=== PATIENT | male | born 1940 | race Caucasian/White ===

== ENCOUNTER 2017-06-28 15:32 | Emergency (ER) | payer OTHER, MEDICARE ==
[~2017-06-28] VITALS: Ht 177.8 cm; Wt 89.1 kg
[~2017-06-28 15:32] MED LIST: AMLO5TAB22 PO; CENTTAB9 PO; CHOL50006 PO; DIOV160T3 PO; JANU50TA9 PO; METO50TA PO; MEVA40TA PO; MILK500C PO; OMEP20TA39 PO; POTA20IN3 PO; PROBCAP4 PO; ST JTAB PO; TICA90 PO; VITA100017 PO
[2017-06-28 15:34] VITALS: BP 188/84; PULSE 51; RESP 18; TEMP 97.6; O2SAT 99
--- NOTE | 2017-06-28 15:57 | RADRPT ---
EXAM DATE/TIME: 06/28/2017 15:51 [place] COMPARISON: No previous studies available for comparison. INDICATIONS : Chest pain. MEDICAL HISTORY : Hypertension. Diabetes mellitus type I. SURGICAL HISTORY : CABG. Coronary artery stent. ENCOUNTER: Initial ACUITY: 1 day PAIN SCORE: 10 LOCATION: middle chest. FINDINGS: PA and lateral views of the chest demonstrate the lungs to be symmetrically aerated without evidence of mass, infiltrate or effusion. The cardiomediastinal contours are unremarkable. Status post CABG. Osseous structures are intact. CONCLUSION: No acute disease. Jose Raul Abreu MD on June 28, 2017 at 15:54 Board Certified Radiologist. This report was verified electronically.
[2017-06-28 16:40] LABS: AUTOMATED NEUTROPHIL # 3.2 TH/MM3 (1.8-7.7); BASOPHIL # 0.1 TH/MM3 (0-0.2); BASOPHIL % 0.8 % (0.0-2.0); EOSINOPHIL # 0.3 TH/MM3 (0-0.4); EOSINOPHIL % 4.5 % (0.0-4.0); HEMATOCRIT 38.4 % (39.0-51.0); LYMPH % 40.9 % (9.0-44.0); LYMPHOCYTE # 2.9 TH/MM3 (1.0-4.8); MEAN CELL VOLUME 85.3 FL (80.0-100.0); MEAN CORPUSCULAR HEMOGLOBIN 28.8 PG (27.0-34.0); MEAN CORPUSCULAR HGB CONC 33.8 % (32.0-36.0); MEAN PLATELET VOLUME 9.1 FL (7.0-11.0); MONO % 9.4 % (0.0-8.0); MONOCYTE # 0.7 TH/MM3 (0-0.9); NEUT % 44.4 % (16.0-70.0); PLATELET COUNT 173 TH/MM3 (150-450); RED CELL DISTRIBUTION WIDTH 15.7 % (11.6-17.2); WHITE BLOOD COUNT 7.2 TH/MM3 (4.0-11.0)
[2017-06-28 16:51] LABS: PROTHROMBIN TIME - PATIENT 10.4 SEC (9.8-11.6)
[2017-06-28 17:02] LABS: BICARBONATE 28.7 MEQ/L (21.0-32.0); BLOOD UREA NITROGEN 20 MG/DL (7-18); CHLORIDE 107 MEQ/L (98-107); CREATININE 1.44 MG/DL (0.60-1.30); GLOMERULAR FILTRATION RATE 47 ML/MIN (>89); GLUCOSE,RANDOM 100 MG/DL (74-106); MAGNESIUM 1.6 MG/DL (1.5-2.5); SODIUM (NA) 140 MEQ/L (136-145)
[2017-06-28 17:07] LABS: TROPONIN I LESS THAN 0.02 NG/ML (0.02-0.05)
[2017-06-28 18:04] VITALS: BP 184/84; PULSE 47; RESP 20; O2SAT 100
[2017-06-28] MEDS ORDERED: CARV6.252 PO (18:12)
[2017-06-28] MEDS ORDERED: METF500T PO (18:12)
[2017-06-28] MEDS ORDERED: OMEGCAP PO (18:13)
[2017-06-28] MEDS ORDERED: CO Q10CA (18:13)
[2017-06-28] MEDS ORDERED: AMLO5TAB2 PO (18:42)
[2017-06-28] MEDS ORDERED: POTA-163 PO (18:42)
[2017-06-28] MEDS ORDERED: PRAS10TA PO (18:42)
[2017-06-28] MEDS ORDERED: ASPI81CH6 CHEW (18:42)
[2017-06-28] MEDS ORDERED: ROSU1TAB8 PO (18:42)
[2017-06-28] MEDS ORDERED: VALS160T6 PO (18:42)
--- NOTE | 2017-06-28 18:44 | PD ---
HPI Chief Complaint: Cardiac Complaint Time Seen by Provider: 17:51 Travel History International Travel<30 days: No Contact w/Intl Traveler<30days: No Traveled to known affect area: No History of Present Illness HPI Patient 77-year-old male presents emergency department for [facility] for evaluation of abnormal EKG. Patient states she's been followed by Dr. Butler in the past but due to a change in insurance [facility], he had no complaints when he showed up there today during intake he was noted be somewhat bradycardic and had an EKG performed which showed a second degree type I block and was referred to the emergency department further evaluation. The patient states he has absolutely no complaints, no chest pain or shortness of breath no preceding symptoms no weakness nausea vomiting diarrhea constipation. States symptoms are minimal, context as above, associated signs symptoms as above, unknown duration. PFSH Past Medical History Hx Anticoagulant Therapy: Yes Anxiety: No Depression: No Cancer: Yes (SKIN) Cardiac Catheterization: Yes Cardiovascular Problems: Yes (CABG, stents) High Cholesterol: Yes Chest Pain: No Diabetes: Yes Patient Takes Glucophage: Yes Endocrine: Yes Genitourinary: Yes (vasectomy ) Heparin Induced Thrombocytopen: No Hypertension: Yes Immune Disorder: No Musculoskeletal: No Neurologic: No Psychiatric: No Reproductive: No Respiratory: Yes (SOB) Integumentary: Yes (skin ca on nose, hand ) Sickle Cell Disease: No Past Surgical History Abdominal Surgery: No Cardiac Surgery: Yes Coronary Artery Bypass Graft: Yes Coronary Stent: Yes (x2) Ear Surgery: No Endocrine Surgery: No Eye Surgery: No Genitourinary Surgery: No Gynecologic Surgery: No Oral Surgery: No Thoracic Surgery: No Other Surgery: Yes Social History Alcohol Use: Yes (rare) Tobacco Use: No (FORMER) Substance Use: No Allergies-Medications (Allergen,Severity, Reaction): Coded Allergies: Iodinated Contrast- Oral and IV Dye (Verified Allergy, Severe, 06/28/17) diatrizoate meglumine (Unverified Allergy, Severe, 01/12/17) gadobenic acid (Unverified Allergy, Severe, 01/12/17) gadodiamide (Unverified Allergy, Severe, 01/12/17) gadoteridol (Unverified Allergy, Severe, 01/12/17) iodixanol (Unverified Allergy, Severe, 01/12/17) iohexol (Unverified Allergy, Severe, 01/12/17) isosorbide (Verified Allergy, Severe, 06/28/17) iodine (Unverified Allergy, Intermediate, 01/12/17) penicillin G (Unverified Allergy, Intermediate, 01/12/17) potassium iodide (Unverified Allergy, Intermediate, 01/12/17) povidone-iodine (Unverified Allergy, Intermediate, 01/12/17) sodium iodide (Unverified Allergy, Intermediate, 01/12/17) sodium iodide (Unverified Allergy, Intermediate, 01/12/17) clopidogrel (Unverified Adverse Reaction, Mild, 01/12/17) Uncoded Allergies: BISULFATE (Allergy, Severe, 06/28/17) sodium pentathol (Allergy, Intermediate, 07/26/14) Reported Meds & Prescriptions Reported Meds & Active Scripts Active Reported Valsartan-Hydrochlorothiazide 160-25 Mg Tab 1 Tab PO DAILY Potassium Chloride ER (Potassium Chloride) 20 Meq Tab 20 Meq PO DAILY Rosuvastatin (Rosuvastatin Calcium) 20 Mg Tab 20 Mg PO HS Effient (Prasugrel) 10 Mg Tab 10 Mg PO DAILY Aspirin Low Dose (Aspirin) 81 Mg Chew 81 Mg CHEW DAILY Amlodipine (Amlodipine Besylate) 5 Mg Tab 5 Mg PO HS [place]-3 Fish Oil/Vitamin (Fish Oil-Cholecalciferol) 1,000-1,000 Mg Cap 1 Cap PO DAILY Co Q 10 (Coenzyme Q10 (Ubidecarenone)) 10 Mg Cap DAILY Metformin (Metformin HCl) 500 Mg Tab Unknown Dose PO BIDPC Carvedilol 6.25 Mg Tab 6.25 Mg PO BID Probiotic Acidophilus (Acidophilus) 12.9 Mg (2 Billion Cell) Cap 1 Tab PO DAILY Vitamin C (Ascorbic Acid) 1,000 Mg Tab 1,000 Mg PO DAILY Review of Systems Except as stated in HPI: all other systems reviewed are Neg Physical Exam Narrative GENERAL: Well-developed well-nourished, quite pleasant 77-year-old male in no obvious distress SKIN: Focused skin assessment warm/dry. HEAD: Atraumatic. Normocephalic. EYES: Pupils equal and round. No scleral icterus. No injection or drainage. ENT: No nasal bleeding or discharge. Mucous membranes pink and moist. NECK: Trachea midline. No JVD. CARDIOVASCULAR: No lid bradycardic, regular rhythm,. No murmur appreciated. RESPIRATORY: No accessory muscle use. Clear to auscultation. Breath sounds equal bilaterally. GASTROINTESTINAL: Abdomen soft, non-tender, nondistended. Hepatic and splenic margins not palpable. MUSCULOSKELETAL: No obvious deformities. No clubbing. No cyanosis. No edema. NEUROLOGICAL: Awake and alert. No obvious cranial nerve deficits. Motor grossly within normal limits. Normal speech. PSYCHIATRIC: Appropriate mood and affect; insight and judgment normal. Data Data Last Documented VS Vital Signs Date Time Temp Pulse Resp B/P (MAP) Pulse Ox O2 Delivery O2 Flow Rate FiO2 06/28/17 18:58 06/28/17 18:04 47 20 100 Room Air 06/28/17 15:34 97.6 Orders Orders Electrocardiogram (06/28/17 15:40) Basic Metabolic Panel (Bmp) (06/28/17 15:40) Ckmb (Isoenzyme) Profile (06/28/17 15:40) Complete Blood Count With Diff (06/28/17 15:40) Magnesium (Mg) (06/28/17 15:40) Prothrombin Time / Inr (Pt) (06/28/17 15:40) Act Partial Throm Time (Ptt) (06/28/17 15:40) Troponin I (06/28/17 15:40) Chest, Pa & Lat (06/28/17 15:40) CKMB (06/28/17 16:04) CKMB% (06/28/17 16:04) Ed Discharge Order (06/28/17 18:44) Labs Laboratory Tests Test 06/28/17 16:04 White Blood Count 7.2 TH/MM3 Red Blood Count 4.50 MIL/MM3 Hemoglobin 13.0 GM/DL Hematocrit 38.4 % Mean Corpuscular Volume 85.3 FL Mean Corpuscular Hemoglobin 28.8 PG Mean Corpuscular Hemoglobin Concent 33.8 % Red Cell Distribution Width 15.7 % Platelet Count 173 TH/MM3 Mean Platelet Volume 9.1 FL Neutrophils (%) (Auto) 44.4 % Lymphocytes (%) (Auto) 40.9 % Monocytes (%) (Auto) 9.4 % Eosinophils (%) (Auto) 4.5 % Basophils (%) (Auto) 0.8 % Neutrophils # (Auto) 3.2 TH/MM3 Lymphocytes # (Auto) 2.9 TH/MM3 Monocytes # (Auto) 0.7 TH/MM3 Eosinophils # (Auto) 0.3 TH/MM3 Basophils # (Auto) 0.1 TH/MM3 CBC Comment DIFF FINAL Differential Comment Prothrombin Time 10.4 SEC Prothromb Time International Ratio 1.0 RATIO Activated Partial Thromboplast Time 25.1 SEC Blood Urea Nitrogen 20 MG/DL Creatinine 1.44 MG/DL Random Glucose 100 MG/DL Calcium Level 10.0 MG/DL Magnesium Level 1.6 MG/DL Sodium Level 140 MEQ/L Potassium Level 4.4 MEQ/L Chloride Level 107 MEQ/L Carbon Dioxide Level 28.7 MEQ/L Anion Gap 4 MEQ/L Estimat Glomerular Filtration Rate 47 ML/MIN Total Creatine Kinase 198 U/L Creatine Kinase MB 1.8 NG/ML Troponin I LESS THAN 0.02 NG/ML MDM Medical Decision Making Medical Screen Exam Complete: Yes Emergency Medical Condition: Yes Differential Diagnosis Arrhythmia, ACS unlikely, NE unlikely Narrative Course Patient roomed in the emergency department, initial workup in this emergency department shows sinus first degree heart block and he is remained in first- degree heart block on cardiac monitoring, troponin negative, lecture lites normal, chest x-ray negative. Patient is asymptomatic Patient was discussed with Dr. Butler, we've reviewed his records in the office, the patient has had a Holter monitor in July 2016 which did show some in a mitten runs of second-degree type I block, he has been asymptomatic throughout his workup since July of last year, they have cut down on his Coreg , Dr. Hernandez recommends cutting back further on his Coreg. I discussed that I do not think the patient requires hospitalization at this time for an intermittent arrhythmia that he's had since July of last year, he agrees. I discussed the recommendations with the patient and he verbalized understanding and agreement, discussed that he has had this worked up in the past. Discussed Dr. Qiu would be happy to see him in follow-up or he can [facility] or call his new insurance company and set up a new appointment. Discussed that he should get the records from the office to take to the new heart allergies should be necessary. Discussed return to ED criteria. Stable for discharge. Diagnosis Primary Impression: Second degree AV block, Mobitz type I Referrals: Marques Shannon MD Additional Instructions: I spoke with Dr. Shannon about you, you had a Holter monitor in July 2016 which showed multiple runs of second-degree type I heart block or Wenckebach. According to Dr. Shannon you have been worked up for this thoroughly in the past and has always been asymptomatic as you are today. Recommend continued cardiology follow-up, decrease your Coreg to 3.125 (cut your current tablets in half) and take this twice a day. 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 No further intervention indicated at this time Disposition: 01 DISCHARGE HOME Condition: Stable Fede Chaudhari MD Jun 28, 2017 18:44
--- NOTE | 2017-06-30 01:01 | EKG ---
Date Performed: 06/28/2017 Time Performed: 16:09:06 PTAGE: 77 years EKG: SUPRAVENTRICULAR BRADYCARDIA VS JUNCTIONAL MODERATE INTRAVENTRICULAR CONDUCTION DELAY MODER ATE ST DEPRESSION ABNORMAL ECG PREVIOUS TRACING : 07/26/2014 16.28 Compared to prior tracing, rate has decreased DOCTOR: Gurmeet Ham Interpretating Date/Time 06/30/2017 00:59:37
== END 2017-06-28 19:24 | disposition home or self-care (01) ==
LOC: NEPE 15:32
DX: I44.1 Atrioventricular block, second degree (principal); I10 Essential (primary) hypertension; E78.00 Pure hypercholesterolemia, unspecified; E11.9 Type 2 diabetes mellitus without complications; Z95.1 Presence of aortocoronary bypass graft; Z95.5 Presence of coronary angioplasty implant and graft; Z85.828 Personal history of other malignant neoplasm of skin; Z88.0 Allergy status to penicillin; Z88.8 Allergy status to other drugs, medicaments and biological substances; Z79.84 Long term (current) use of oral hypoglycemic drugs; Z79.82 Long term (current) use of aspirin; Z79.899 Other long term (current) drug therapy
CPT/HCPCS: 71046; 80048; 82550; 82552; 83735; 84484; 85025; 85610; 85730; 93005; 99285